=== PATIENT | male | born 1940 | race Caucasian/White ===

== ENCOUNTER 2018-12-08 16:22 | Emergency (ER) | payer MEDICARE, SELFPAY ==
--- NOTE | 2018-12-08 16:48 | DI.US.S_ITS ---
PROCEDURE: US PERIPH VENOUS LOW EXTREM LT INDICATIONS: LLE REDNESS/SWELLING TECHNIQUE: Real-time imaging, as well as color and pulse Doppler interrogation, were performed of the lower extremity deep veins from the inguinal ligament to the popliteal fossa. COMPARISON: None. FINDINGS: The common femoral, femoral and popliteal veins are normally compressible, and free of intraluminal thrombus. Color and pulse Doppler demonstrate normal phasic intraluminal flow. There is normal augmentation response to distal compression maneuver. IMPRESSION: No DVT found. Dictated by: Villa Quintanilla M.D. on 12/08/2018 at 17:47 Approved by: Villa Quintanilla M.D. on 12/08/2018 at 17:47
[2018-12-08 16:57] VITALS: BP 140/87; PULSE 81; RESP 18; TEMP 36.8; O2SAT 96; BMI 30.9
[2018-12-08 17:07] LABS: Add Manual Diff / Slide Review NO; Basophils Absolute Auto 0 /uL (0-100); Basophils Percent Auto 0.3 % (0-2); Eosinophils Absolute Auto 100 /uL (0-450); Eosinophils Percent Auto 2.1 % (2-4); Hematocrit 36.1 % (41-53); Hemoglobin 12.5 g/dL (13.5-17.5); Lymphocytes Absolute Auto 1600 /uL (1100-4500); Lymphocytes Percent Auto 26.5 % (25-40); Mean Corpuscular HGB Conc 34.5 % (30-36); Mean Corpuscular Hemoglobin 32.5 PG (26-34); Mean Corpuscular Volume 94.1 fL (80-100); Monocytes Absolute Auto 700 /uL (0-900); Monocytes Percent Auto 11.8 % (3-14); Neutrophils Absolute Auto 3600 /uL (1500-7000); Neutrophils Percent Auto 59.3 % (50-75); Platelet Count 213 X10^3/uL (150-400); Red Blood Cell Count 3.84 X10^6/uL (4.5-5.9); Red Cell Distribution Width 13.2 % (11.6-14.8)
[2018-12-08 17:21] LABS: Alanine Aminotransferase 27 IU/L (21-72); Albumin 3.7 g/dL (3.5-5.0); Albumin Globulin Ratio 1.4 (1.0-2.8); Alkaline Phosphatase 78 U/L (38-126); Aspartate Aminotransferase 31 IU/L (17-59); BUN Creatinine Ratio 30.9 (6-22); Bilirubin Total 0.4 mg/dL (0.2-1.3); Blood Urea Nitrogen 34 mg/dL (9-20); Calcium 9.1 mg/dL (8.4-10.2); Carbon Dioxide 27 mmol/L (22-32); Chloride 104 mmol/L (98-107); Estimated Glomerular Filt Rate > 60.0 mL/min (>60); Globulin 2.6 g/dL (1.7-4.1); Glucose 80 mg/dL (80-110); HEMOLYSIS < 15 (0-50); Lactate (Lactic Acid) 0.6 mmol/L (0.7-2.1); Potassium 4.1 mmol/L (3.4-5.1); Sodium 137 mmol/L (137-145); Total Protein 6.3 g/dL (6.3-8.2)
[2018-12-08 17:31] LABS: B Type Natriuretic Peptide < 100 (<100)
--- NOTE | 2018-12-08 17:50 | ED.EXTPRO ---
HPI - Extremity Problem <DONI Aldrich - Last Filed: 12/09/18 00:34> General Chief complaint: Extremity Problem,Nontraumatic Stated complaint: Thinks spider bite on left leg Time Seen by Provider: 12/08/18 16:40 Source: patient Mode of arrival: ambulatory Limitations: no limitations History of Present Illness HPI Narrative: This is a pleasant 78-year-old gentleman, prior smoker, presents with his spouse with left lower leg discomfort, swelling, redness, warmth. He and his is from [place] and has been sailing, he reports onset of symptoms was about 2 weeks ago. He has history of diabetes and heart failure and takes insulin, glipizide, furosemide. He denies fever, chills, nausea, vomiting. He reports his symptoms actually mildly improved since 2 weeks ago. The patient reports he will be returning to [place] and of December. Related Data Home Medications Medication Instructions Recorded Confirmed albuterol sulfate [Ventolin HFA] 1 puff INHALATION PRN PRN 12/08/18 12/08/18 furosemide 20 mg PO BID 12/08/18 12/08/18 glipizide 10 mg PO DAILY 12/08/18 12/08/18 insulin NPH isoph U-100 human 12 units SUBCUT BID 12/08/18 12/08/18 [Humulin N NPH U-100 Insulin] losartan 100 mg PO DAILY 12/08/18 12/08/18 simvastatin 40 mg PO QPM 12/08/18 12/08/18 terazosin 2 mg PO BID 12/08/18 12/08/18 Previous Rx's Medication Instructions Recorded sulfamethoxazole-trimethoprim 1 tab PO DAILY 7 Days #14 tab 12/08/18 Allergies Allergy/AdvReac Type Severity Reaction Status Date / Time indomethacin [From Indocin] Allergy Verified 12/08/18 16:57 Review of Systems <DONI Aldrich - Last Filed: 12/09/18 00:34> Review of Systems General: Denies fever, chills, fatigue, malaise, sweats. HEENT: Denies sinus pain, ear pain, sore throat, difficulty swallowing, dizziness. Respiratory: Denies dyspnea, cough, wheezing, hemoptysis, sputum. Cardiovascular: Denies chest pain, palpitations, orthopnea, edema. Gastrointestinal: Denies nausea, vomiting, abdominal pain, diarrhea, constipation, melena. : Denies dysuria, frequency, incontinence, hematuria, urinary retention. Musculoskeletal: Denies weakness, joint pain or bony pain. Skin: See HPI Neurologic: Denies weakness, headache, numbness, change in speech, confusion, seizures, incoordination. Psychiatric: No concerning psychosocial issues. 12-point review of systems is negative except for those stated above. PFSH <DONI Aldrich - Last Filed: 12/09/18 00:34> Medical History Diabetes (Acute) Heart failure (Acute) Hyperlipidemia (Acute) Surgical History H/O shoulder surgery (Chronic) S/P correction of deviated nasal septum (Resolved) Social History Smoking Status: Never smoker Social History (Updated 12/09/18 @ 00:20 by DONI Aldrich) Smoking Status: Former smoker Exam <DONI Aldrich - Last Filed: 12/09/18 00:34> Narrative Exam Narrative: GEN: Alert, oriented x 3, well appearing and nourished, and in no acute distress. Head: Normal cephalic, atraumatic. No scalp or temporal tenderness, palpable mass or rash. EYES: Pupils are equal, round, and reactive to light and accommodation. Extraocular muscles are intact bilaterally. There is no subconjunctival hemorrhage, exudate and sclera non-icteric. ENT: Nose without bleeding, purulent discharge. Mucous membrane moist, no mucosal lesion. Throat without erythema, tonsillar hypertrophy or exudate. Uvula in midline, airway patent. Neck: Trachea in midline. No JVD, non-tender without lymphadenopathy. No masses or thyroid megaly. Supple, non-tender and no meningeal signs. CARDIAC: Normal regular rate and rhythm without murmurs, gallops, or rubs. No chest wall tenderness. No peripheral edema, cyanosis or pallor. Capillary refill is less than 2 seconds. RESPIRATORY: Lungs are cleat to auscultate bilaterally. No cough, wheezes, rales, or rhonchi. No stridor, respiratory distress, increase work of breathing, or accessary muscle used. ABD: Abdomen soft, nontender and non-distended. No guarding or rebound tenderness to palpate. Bowel sounds are normal in all 4 quadrants. There is no palpable masses or organomegaly. EXT: Full painless ROM of all extremities but LLE with no loss of sensation, strength, effusion or edema. SKIN: LLE below knee with erythema, warmth, edema. Other areas, warm, dry, normal color for patient and no erythema, lesions or rash over visible areas. BACK: Nontender without deformity or crepitance. No flank tenderness. NEUROLOGICAL: Alert and oriented to place, time and person. Sensation and motor function intact bilaterally. No facial droops, dysphasia. PSYCHIATRIC: Good judgement and reason, without hallucinations, abnormal affect or abnormal behaviors during the examination. Patient is not suicidal. Initial Vital Signs Initial Vital Signs: Vital Signs Temperature 98.2 F 12/08/18 16:57 Pulse Rate 81 12/08/18 16:57 Respiratory Rate 18 12/08/18 16:57 Blood Pressure 140/87 12/08/18 16:57 Pulse Oximetry 96 12/08/18 16:57 Extrem Right upper extremity: normal to inspection and full ROM Left upper extremity: normal to inspection and full ROM Right lower extremity: normal to inspection and full ROM Left lower extremity: normal capillary refill, edema and lower leg Details: erythema, tenderness, non-pitting edema and warmth; inspection abnormal, no abrasions and no lacerations; abnormal to inspection <Marlon Holley DO - Last Filed: 12/09/18 07:36> Initial Vital Signs Initial Vital Signs: Vital Signs Temperature 98.2 F 12/08/18 16:57 Pulse Rate 81 12/08/18 16:57 Respiratory Rate 18 12/08/18 16:57 Blood Pressure 140/87 12/08/18 16:57 Pulse Oximetry 96 12/08/18 16:57 Course <DONI Aldrich - Last Filed: 12/09/18 00:34> Orders Ordered: Discontinued Medications Trimethoprim/Sulfamethoxazole (Bactrim Ds) 1 tab PO NOW ONE Stop: 12/08/18 18:04 Last Admin: 12/08/18 18:12 Dose: 1 tab Vital Signs - 8 hr 12/08/18 16:57 12/08/18 18:27 12/08/18 18:28 Temperature 98.2 F Pulse Rate 81 77 Pulse Rate [Left Dorsalis Pedis] 77 Respiratory Rate 18 14 Blood Pressure 140/87 145/74 H Pulse Oximetry 96 97 <Marlon Holley DO - Last Filed: 12/09/18 07:36> Orders Ordered: Discontinued Medications Trimethoprim/Sulfamethoxazole (Bactrim Ds) 1 tab PO NOW ONE Stop: 12/08/18 18:04 Last Admin: 12/08/18 18:12 Dose: 1 tab Vital Signs - 8 hr 12/08/18 16:57 12/08/18 18:27 12/08/18 18:28 Temperature 98.2 F Pulse Rate 81 77 Pulse Rate [Left Dorsalis Pedis] 77 Respiratory Rate 18 14 Blood Pressure 140/87 145/74 H Pulse Oximetry 96 97 MDM - Extremity (Nontraumatic) <DONI Aldrich - Last Filed: 12/09/18 00:34> Differential Diagnosis Likely cellulitis, lower extremity edema, deep vein thrombosis of lower extremity and other (HF exacerbation) Medical Records Attestation: I reviewed the patient's medical records. Lab Data Attestation: I reviewed the patient's lab results. Result diagrams: 12/08/18 17:01 12/08/18 17:01 Lab Results 12/08/18 12/08/18 12/08/18 Range/Units 17:01 17:01 17:01 WBC 6.0 (4.5-11.0) X10^3/uL RBC 3.84 L (4.5-5.9) X10^6/uL Hgb 12.5 L (13.5-17.5) g/dL Hct 36.1 L (41-53) % MCV 94.1 (80-100) fL MCH 32.5 (26-34) PG MCHC 34.5 (30-36) % RDW 13.2 (11.6-14.8) % Plt Count 213 (150-400) X10^3/uL Neut % (Auto) 59.3 (50-75) % Lymph % (Auto) 26.5 (25-40) % [place] % (Auto) 11.8 (3-14) % Eos % (Auto) 2.1 (2-4) % Baso % (Auto) 0.3 (0-2) % Neut # (Auto) 3600 (6706-7354) /uL Lymph # (Auto) 1600 (7251-3749) /uL [place] # (Auto) 700 (0-900) /uL Eos # (Auto) 100 (0-450) /uL Baso # (Auto) 0 (0-100) /uL Sodium 137 (137-145) mmol/L Potassium 4.1 (3.4-5.1) mmol/L Chloride 104 (98-107) mmol/L Carbon Dioxide 27 (22-32) mmol/L BUN 34 H (9-20) mg/dL Creatinine 1.10 (0.66-1.25) mg/dL Estimated GFR > 60.0 (>60) mL/min BUN/Creatinine Ratio 30.9 H (6-22) Glucose 80 (80-110) mg/dL Lactate 0.6 L (0.7-2.1) mmol/L Calcium 9.1 (8.4-10.2) mg/dL Total Bilirubin 0.4 (0.2-1.3) mg/dL AST 31 (17-59) IU/L ALT 27 (21-72) IU/L Alkaline Phosphatase 78 (38-126) U/L B-Natriuretic Peptide < 100 (<100) Total Protein 6.3 (6.3-8.2) g/dL Albumin 3.7 (3.5-5.0) g/dL Globulin 2.6 (1.7-4.1) g/dL Albumin/Globulin Ratio 1.4 (1.0-2.8) Imaging Data US-lower leg LT: Radiologist's impression: Chart [facility] Diagn[facility] DATE TYPE STATUS AUTHOR Hx 12/08/18 16:48 Villa Quintanilla Francis R 78, M0 1940 REG ER, ED.LOC - Main ED: R02 185.42cm 106.594kg BMI: 31.0kg/m? Extremity Problem,Nontraumatic Search Chart No Data to Display No Data to Display Today 16:57 Donovan Munson M [address] [address] Ultrasound Report Signed Patient: Donovan Munson RMR#: [id number] : 1Acct:[id number] Age/Sex: 78 / MDate of Service: 12/08/18 Loc: ED Accession Number: [id number] Procedure: US periph venous low extrem lt Ordering Provider: Jc Vincent PROCEDURE: US PERIPH VENOUS LOW EXTREM LT INDICATIONS: LLE REDNESS/SWELLING TECHNIQUE: Real-time imaging, as well as color and pulse Doppler interrogation, were performed of the lower extremity deep veins from the inguinal ligament to the popliteal fossa. COMPARISON: None. FINDINGS: The common femoral, femoral and popliteal veins are normally compressible, and free of intraluminal thrombus. Color and pulse Doppler demonstrate normal phasic intraluminal flow. There is normal augmentation response to distal compression maneuver. IMPRESSION: No DVT found. Dictated by: Villa Quintanilla M.D. on 12/08/2018 at 17:47 Approved by: Villa Quintanilla M.D. on 12/08/2018 at 17:47 [facility] Narrative Medical decision making narrative: This is pleasant 78-year-old gentleman who is originally from [place] complains of left lower extremity discomfort, swelling, redness, warmth to touch for last 2 weeks. The patient denies fever, chills, nausea, vomiting. He and his had been sailing off [place]. The patient reports his symptoms actually have been mildly improved since the onset. The patient's blood tests were unremarkable including white count, without increase in neutrophils. T elevated without he patient's BUN was mildly elevated within normal creatinine and GFR. The patient's lactate and BNP was within normal limits. Peripheral ultrasound on left lower leg indicates no DVT. Patient was treated with Bactrim DS prior DC to home for cellulitis and he will continue 7 days b.i.d. dose. Since the patient's PCP is located in [place], the patient was advised to follow up with either emergency room or [place] walk-in [facility] for recheck. Return precautions were discussed with patient and spouse and no further questions were expressed at this time. They both agree with treatment plan. <Marlon Holley DO - Last Filed: 12/09/18 07:36> Lab Data Lab Results 12/08/18 12/08/18 12/08/18 Range/Units 17:01 17:01 17: WBC 6.0 (4.5-11.0) X10^3/uL RBC 3.84 L (4.5-5.9) X10^6/uL Hgb 12.5 L (13.5-17.5) g/dL Hct 36.1 L (41-53) % MCV 94.1 (80-100) fL MCH 32.5 (26-34) PG MCHC 34.5 (30-36) % RDW 13.2 (11.6-14.8) % Plt Count 213 (150-400) X10^3/uL Neut % (Auto) 59.3 (50-75) % Lymph % (Auto) 26.5 (25-40) % [place] % (Auto) 11.8 (3-14) % Eos % (Auto) 2.1 (2-4) % Baso % (Auto) 0.3 (0-2) % Neut # (Auto) 3600 (2246-0782) /uL Lymph # (Auto) 1600 (4524-4546) /uL [place] # (Auto) 700 (0-900) /uL Eos # (Auto) 100 (0-450) /uL Baso # (Auto) 0 (0-100) /uL Sodium 137 (137-145) mmol/L Potassium 4.1 (3.4-5.1) mmol/L Chloride 104 (98-107) mmol/L Carbon Dioxide 27 (22-32) mmol/L BUN 34 H (9-20) mg/dL Creatinine 1.10 (0.66-1.25) mg/dL Estimated GFR > 60.0 (>60) mL/min BUN/Creatinine Ratio 30.9 H (6-22) Glucose 80 (80-110) mg/dL Lactate 0.6 L (0.7-2.1) mmol/L Calcium 9.1 (8.4-10.2) mg/dL Total Bilirubin 0.4 (0.2-1.3) mg/dL AST 31 (17-59) IU/L ALT 27 (21-72) IU/L Alkaline Phosphatase 78 (38-126) U/L B-Natriuretic Peptide < 100 (<100) Total Protein 6.3 (6.3-8.2) g/dL Albumin 3.7 (3.5-5.0) g/dL Globulin 2.6 (1.7-4.1) g/dL Albumin/Globulin Ratio 1.4 (1.0-2.8) Discharge Plan Departure Patient Disposition: Home Clinical Impression: Cellulitis Qualifiers: Site of cellulitis: extremity Site of cellulitis of extremity: lower extremity Laterality: left Qualified Code(s): L03.116 - Cellulitis of left lower limb Discharge Date/Time: 12/08/18 18:28 Interventions: ED Discharge Assessment Last Done: 12/08/18 18:28 Instructions: DI for Cellulitis -- Adult Activity Restrictions/Additional Instructions: You have been diagnosed with [L leg cellulitis. Your lab test was unremarkable but maybe little dehydrated. You US on leg does not indicate deep vein thrombosis such as blood clot. We will treat you as skin infection on your left lower leg. Please limit walking excessively. You could use a warm pack for comfort and healing. Also he can elevate affected leg for swelling and comfort]. What to do: *Take your medications as directed. Please take Bactrim for 7 days. Please complete a course of antibiotic medications unless this gives you on allergy reaction. He can continue to take [id number] Tylenol and or ibuprofen as needed for pain. *Follow up with your primary care provider in 2-3 days, call for an appointment. If you can visit you're primary care physician, you are welcome to recheck at ER. Let them know you were seen in the ED and that we asked you to be seen in follow up. *Return to ED if you have any new, worsening, or concerning symptoms, such as [increasing pain, fever/chills, tingling numbness to lower extremity, chest pain, breathing difficulty, unable to tolerate fluids, or any other acute concerns]. Prescriptions: New sulfamethoxazole-trimethoprim 800-160 mg tablet 1 tab PO DAILY 7 Days Qty: 14 RF: 0 No Action glipizide 10 mg Tablet 10 mg PO DAILY RF: 0 simvastatin 40 mg Tablet 40 mg PO QPM RF: 0 terazosin 2 mg Capsule 2 mg PO BID RF: 0 Humulin N NPH U-100 Insulin 100 unit/mL Suspension 12 units subcut BID RF: 0 furosemide 20 mg Tablet 20 mg PO BID RF: 0 albuterol sulfate [Ventolin HFA] 90 mcg/actuation Hfa Aerosol Inhaler 1 puff INHALATION PRN PRN (Reason: Shortness Of Breath) RF: 0 losartan 100 mg Tablet 100 mg PO DAILY RF: 0 <Marlon Holley DO - Last Filed: 12/09/18 07:36> Cosign ED Attending Cosjohnsonature Attestation: I was available for consultation during this patient's emergency department encounter
[2018-12-08] MEDS: TRIMETH/SULFA 160/800 (DS) TABLET 1 TAB PO (18:12)
[2018-12-08 18:27] VITALS: PULSE 77
[2018-12-08 18:28] VITALS: BP 145/74; PULSE 77; RESP 14; O2SAT 97
== END 2018-12-08 18:28 | disposition home or self-care (01) ==
PROVIDERS: Emergency Provider Nurse Practitioner Family
DX: L03.116 Cellulitis of left lower limb (principal)
CPT/HCPCS: 36415; 80053; 83605; 83880; 85025; 93971; 99282; 99284

== ENCOUNTER 2018-12-14 14:08 | Emergency (ER) | payer MEDICARE, SELFPAY ==
[2018-12-14 14:19] VITALS: BP 105/62; PULSE 96; RESP 20; TEMP 36.7; O2SAT 96; BMI 30.9
--- NOTE | 2018-12-14 20:52 | ED_ITS ---
HPI - Recheck/Abnormal Lab/Rx <IHSAN Tucker - Last Filed: 12/14/18 20:52> General Chief Complaint: Recheck/Abnormal Lab/Rx Stated Complaint: spider bite, lower left leg, not getting better Time Seen by Provider: 12/14/18 14:24 Source: patient Mode of arrival: ambulatory Limitations: no limitations History of Present Illness HPI narrative: The patient is a 78-year-old male who presents for chief complaint of a recheck of a possible spider bite on his left lower leg that is not getting any better. He was evaluated at this facility on the of this month and started on Bactrim. He had a negative ultrasound for DVT at that point. He had normal lab work at that point. He denies fevers nausea vomiting or diarrhea. He states it is it improved slightly, but increasingly red. He denies any chest pain or shortness of breath. Related Data Home Medications Medication Instructions Recorded Confirmed albuterol sulfate [Ventolin HFA] 1 puff INHALATION PRN PRN 12/08/18 12/08/18 furosemide 20 mg PO BID 12/08/18 12/08/18 glipizide 10 mg PO DAILY 12/08/18 12/08/18 insulin NPH isoph U-100 human 12 units SUBCUT BID 12/08/18 12/08/18 [Humulin N NPH U-100 Insulin] losartan 100 mg PO DAILY 12/08/18 12/08/18 simvastatin 40 mg PO QPM 12/08/18 12/08/18 terazosin 2 mg PO BID 12/08/18 12/08/18 Previous Rx's Medication Instructions Recorded cephalexin 500 mg PO QID #40 cap 12/14/18 Allergies Allergy/AdvReac Type Severity Reaction Status Date / Time indomethacin [From Indocin] Allergy Verified 12/08/18 16:57 Review of Systems <IHSAN Tucker - Last Filed: 12/14/18 20:52> Review of Systems GENERAL: Denies chills, fatigue, malaise, fever, sweats. HEENT: Denies sinus pain, ear pain, sore throat, difficulty swallowing, d izziness. RESPIRATORY: Denies dyspnea, cough, wheezing, hemoptysis, sputum. CARDIOVASCULAR: Denies chest pain, palpitations, orthopnea, edema, GASTROINTESTINAL: Denies nausea, vomiting, abdominal pain, diarrhea, constipation, melena. : Denies dysuria, frequency, incontinence, hematuria, urinary retention. MUSCULOSKELETAL: denies weakness, joint pain, or bony pain SKIN: See HPI NEUROLOGIC: Denies weakness, headache, numbness, change in speech, confusion, seizures, incoordination. PSYCHIATRIC: No concerning psychosocial issues. 12 point review of systems is negative except for those stated above PFSH <IHSAN Tucker - Last Filed: 12/14/18 20:52> Medical History Diabetes (Acute) Heart failure (Acute) Hyperlipidemia (Acute) Surgical History H/O shoulder surgery (Chronic) S/P correction of deviated nasal septum (Resolved) Social History (Updated 12/09/18 @ 00:20 by DONI Aldrich) Smoking Status: Former smoker Social History Smoking Status: Former smoker Exam <IHSAN Tucker - Last Filed: 12/14/18 20:52> Narrative Exam Narrative: GENERAL: This is a well-nourished, well-developed patient, in no acute distress HEAD: Atraumatic. Normocephalic. No temporal or scalp tenderness. EYES: Pupils equal round and reactive. Extraocular motions intact. No scleral icterus. No injection or drainage. ENT: Nose without bleeding, purulent drainage or septal hematoma. Throat without erythema, tonsillar hypertrophy or exudate. Uvula midline. Airway patent. NECK: Trachea midline. No JVD or lymphadenopathy. Supple, nontender, no meningeal signs. CARDIOVASCULAR: Regular rate and rhythm RESPIRATORY: No cough. No increased respiratory effort. No accessory muscle use. EXTREMITIES: Positive pedal pulses BACK: Nontender without deformity or crepitance. No flank tenderness. NEURO: AOx3. SKIN: Approximately 6 cm circular erythema left lower extremity medial aspect. No palpable fluctuance. No drainage. Initial Vital Signs Initial Vital Signs: Vital Signs Temperature 98.1 F 12/14/18 14:19 Pulse Rate 96 H 12/14/18 14:19 Respiratory Rate 20 12/14/18 14:19 Blood Pressure 105/62 12/14/18 14:19 Pulse Oximetry 96 12/14/18 14:19 <Katerina Jaffe DO - Last Filed: 12/15/18 18:40> Initial Vital Signs Initial Vital Signs: Vital Signs Temperature 98.1 F 12/14/18 14:19 Pulse Rate 96 H 12/14/18 14:19 Respiratory Rate 20 12/14/18 14:19 Blood Pressure 105/62 12/14/18 14:19 Pulse Oximetry 96 12/14/18 14:19 Course <IHSAN Tucker - Last Filed: 12/14/18 20:52> Vital Signs - 8 hr 12/14/18 14:19 Temperature 98.1 F Pulse Rate 96 H Respiratory Rate 20 Blood Pressure 105/62 Pulse Oximetry 96 <Katerina Jaffe DO - Last Filed: 12/15/18 18:40> Vital Signs - 8 hr 12/14/18 14:19 Temperature 98.1 F Pulse Rate 96 H Respiratory Rate 20 Blood Pressure 105/62 Pulse Oximetry 96 MDM - Recheck/Abnormal Lab/Rx <IHSAN Tucker - Last Filed: 12/14/18 20:52> MDM Narrative Medical decision making narrative: The patient is a 78-year-old male who presents with a chief complaint of continued lower leg issues. He was treated for cellulitis with Bactrim, is about to finish his course. He notes no improvement. He still has no signs of systemic infection such as fevers nausea vomiting or diarrhea. He declined another ultrasound to check for DVT. I discussed at length follow up with PCP. Started on Keflex for broader spectrum coverage. Discussed return precautions such as chest pain, shortness of breath, etc. Encouraged rest ice compression elevation as well. Patient has no questions or concerns upon discharge. There is no palpable fluctuance to drain at this point time. Patient was nontoxic appearing throughout his stay in the ER for Discharge Plan Departure Patient Disposition: Home Clinical Impression: Cellulitis Qualifiers: Site of cellulitis: extremity Site of cellulitis of extremity: lower extremity Laterality: left Qualified Code(s): L03.116 - Cellulitis of left lower limb Discharge Date/Time: 12/14/18 15:33 Interventions: ED Discharge Assessment Last Done: 12/14/18 15:32 Instructions: DI for Cellulitis -- Adult Activity Restrictions/Additional Instructions: I have started you on a 2nd antibiotic. Please monitor for fevers, extending redness, vomiting or diarrhea. Please be evaluated if any of these occur. Please use rest, ice, compression, elevation Prescriptions: New cephalexin 500 mg capsule 500 mg PO QID Qty: 40 RF: 0 No Action glipizide 10 mg Tablet 10 mg PO DAILY RF: 0 simvastatin 40 mg Tablet 40 mg PO QPM RF: 0 terazosin 2 mg Capsule 2 mg PO BID RF: 0 Humulin N NPH U-100 Insulin 100 unit/mL Suspension 12 units subcut BID RF: 0 furosemide 20 mg Tablet 20 mg PO BID RF: 0 albuterol sulfate [Ventolin HFA] 90 mcg/actuation Hfa Aerosol Inhaler 1 puff INHALATION PRN PRN (Reason: Shortness Of Breath) RF: 0 losartan 100 mg Tablet 100 mg PO DAILY RF: 0 <Katerina Jaffe DO - Last Filed: 12/15/18 18:40> Cosign ED Attending Cosignature Attestation: I was immediately available in the department for consultation. This documentation has been reviewed and I agree with assessment and plan. Supervised by Katerina Jaffe DO
== END 2018-12-14 15:33 | disposition home or self-care (01) ==
PROVIDERS: Emergency Provider Nurse Practitioner Family
DX: L03.116 Cellulitis of left lower limb (principal)
CPT/HCPCS: 99282